=== PATIENT | male | born 1970 | race Two or more races ===

== ENCOUNTER 2019-08-03 07:25 | Emergency (ER) | payer MEDICAID ==
[~2019-08-03] VITALS: Ht 177.8 cm; Wt 95.0 kg
--- NOTE | 2019-08-03 07:25 | NUR ---
BIB C/O R ANKLE AND NOSE INJURY S/P GLF ON A 6FT LADDER, PT IS AAOX4, NOT IN RESPIRATORY DISTRESS, HOOKED TO MONITOR, KEPT RESTED AND COMFORTABLE, WILL CONTINUE TO MONITOR.
--- NOTE | 2019-08-03 07:25 | NUR ---
SEEN AND EXAMINED BY .
--- NOTE | 2019-08-03 07:26 | NUR ---
IV LINE ESTABLISHED, G18 R AC.
[2019-08-03] MEDS ORDERED: ONDANSETRON HCL/PF 4 MG/2 ML VIAL IVP ONE (07:30)
[2019-08-03] MEDS ORDERED: IV NS 0.9% 1,000 ML BAG IV ONE (07:30)
[2019-08-03] MEDS ORDERED: MORPHINE SULFATE INJ 2 MG/ML DISP.SYRIN IV ONE ×2 (07:30→09:00)
[2019-08-03] MEDS ORDERED: MORPHINE SULFATE INJ 4 MG/ML DISP.SYRIN ONE ×2 (07:34→08:35)
[2019-08-03] MEDS ORDERED: ONDANSETRON HCL/PF 4 MG/2 ML VIAL ONE (07:34)
--- NOTE | 2019-08-03 07:50 | NUR ---
PT IS WHEELED TO CT SCAN VIA [facility].
--- NOTE | 2019-08-03 08:35 | NUR ---
Paged Dr Serna for consult
[2019-08-03] MEDS ORDERED: HYDROMORPHONE 1 MG/1 ML DISP.SYRIN ONE ×2 (09:10→12:52)
--- NOTE | 2019-08-03 09:25 | NUR ---
[facility] AT BEDSIDE FOR XRAY.
[2019-08-03] MEDS ORDERED: HYDROMORPHONE 1 MG/1 ML DISP.SYRIN IV ONE ×2 (09:30→13:00)
--- NOTE | 2019-08-03 12:21 | NUR ---
RECIEVED A CALL FROM [facility] [phone]. ACCEPTED TO [facility] UNDER THE CARE OF Tiffanie PERAZA GOING TO [phone]. [phone] NUMBER FOR REPORT.
--- NOTE | 2019-08-03 12:41 | NUR ---
[facility] ETA 1330. JUNIOR AUTH# [id number].
--- NOTE | 2019-08-03 12:50 | NUR ---
REPORT GIVEN TO GALE QUINTANILLA OF [facility].
--- NOTE | 2019-08-03 13:43 | NUR ---
DR. POP PARRA ACCEPTED PATIENT AT [facility].
--- NOTE | 2019-08-03 13:48 | NUR ---
REPORT GIVEN TO EMT FOR PT TRANSFER TO [facility].
[2019-08-03 13:52] VITALS: BP 124/77
== END 2019-08-03 13:57 | disposition other institution (70) ==
LOC: ER 07:25 → EDBD 07:25 → ER 13:57
DX: S82.391A Other fracture of lower end of right tibia, initial encounter for closed fracture (principal); S02.2XXA Fracture of nasal bones, initial encounter for closed fracture; Z79.899 Other long term (current) drug therapy; W11.XXXA Fall on and from ladder, initial encounter; Y93.89 Activity, other specified; Y92.89 Other specified places as the place of occurrence of the external cause; Y99.8 Other external cause status
CPT/HCPCS: 29505; 70450; 70486; 73610 ×2; 73700; 96374; 96375; 96376; 99285; J1170 ×2; J2270 ×2; J2405; J7030

== ENCOUNTER 2020-04-22 04:52 | Emergency (ER) | payer MEDICAID ==
[~2020-04-22] VITALS: Ht 177.8 cm; Wt 88.5 kg
[2020-04-22 05:19] VITALS: BP 128/87
[2020-04-22] MEDS ORDERED: KETOROLAC TROMETHAMINE INJ 60 MG/2 ML VIAL IM ONE ×2 (05:52→06:00)
== END 2020-04-22 05:58 | disposition home or self-care (01) ==
LOC: ER 04:56
DX: H92.01 Otalgia, right ear (principal)
CPT/HCPCS: 96372; 99283; J1885

== ENCOUNTER 2022-09-07 11:57 | Emergency (ER) | payer MEDICAID ==
[~2022-09-07] VITALS: Ht 170.2 cm; Wt 90.7 kg
--- NOTE | 2022-09-07 13:15 | NUR ---
The patient is bib family for "Been having sorethroat/fever/chills/body aches/hard to swallow xcouple day. The patient rates pain 10/10. In room air and denies SOB. Respiration regular and unlabored. Denies N/V at this time. Will continue to monitor the patient.
[2022-09-07] MEDS ORDERED: IV NS 0.9% 1,000 ML BAG IV ONE ×2 (13:30→14:30)
[2022-09-07] MEDS ORDERED: KETOROLAC TROMETHAMINE INJ 30 MG/ML VIAL IV ONE (13:30)
[2022-09-07] MEDS ORDERED: KETOROLAC TROMETHAMINE INJ 30 MG/ML VIAL ONE (13:40)
[2022-09-07 13:59] LABS: BASOPHILS # (AUTO) 0.1 K/uL (0.0-0.2); BASOPHILS % (AUTO) 0.5 % (0.0-2.0); EOSINOPHILS % (AUTO) 0.8 % (0.0-6.0); HEMATOCRIT 46 % (39-51); HEMOGLOBIN 14.4 g/dL (13.5-17.5); LYMPHOCYTES # (AUTO) 1.6 K/uL (0.8-4.8); LYMPHOCYTES % (AUTO) 8.2 % (20.0-44.0); MEAN CORPUSCULAR HGB CONC 32 g/dl (31.0-36.0); MEAN CORPUSCULAR VOLUME 89 fL (80-96); MONOCYTES # (AUTO) 1.1 K/uL (0.1-1.30); NEUTROPHILS % (AUTO) 84.5 % (43.0-81.0); PLATELET COUNT (AUTO) 283 K/uL (150-450)
--- NOTE | 2022-09-07 13:59 | NUR ---
covid antigen and rapid group a strep swabs done and sent to the lab
[2022-09-07 14:10] LABS: CALCIUM, SERUM 8.6 mg/dL (8.5-10.1); CREATININE 1.1 mg/dL (0.6-1.3); POTASSIUM 3.9 mmol/L (3.5-5.1)
[2022-09-07 14:16] LABS: ALBUMIN 3.4 g/dL (3.4-5.0); BILIRUBIN,DIRECT 0.1 mg/dL (0.0-0.2); BILIRUBIN,TOTAL 0.4 mg/dL (0.2-1.0)
--- NOTE | 2022-09-07 14:21 | NUR ---
THE PATIENT IS TAKEN TO CT
--- NOTE | 2022-09-07 15:04 | NUR ---
urine collected and sent to the lab.
[2022-09-07] MEDS ORDERED: MORPHINE SULFATE INJ 4 MG/ML DISP.SYRIN ONE (15:05)
[2022-09-07] MEDS ORDERED: ONDANSETRON HCL/PF 4 MG/2 ML VIAL ONE (15:05)
[2022-09-07 15:16] LABS: BILIRUBIN,URINE NEGATIVE (NEGATIVE); COLOR,URINE YELLOW (YELLOW); LEUKOCYTE ESTERASE ,URINE NEGATIVE (NEGATIVE); NITRITE, URINE NEGATIVE (NEGATIVE); PH,URINE 5.5 (5.0-8.0); PROTEIN,URINE 1+ mg/dl (NEGATIVE); UGLUCOSE NEGATIVE (NEGATIVE); UROBILINOGEN,URINE 0.2 EU/dL (0.2)
[2022-09-07] MEDS ORDERED: MORPHINE SULFATE INJ 2 MG/ML DISP.SYRIN IV ONE (15:30)
[2022-09-07] MEDS ORDERED: ONDANSETRON HCL/PF 4 MG/2 ML VIAL IVP ONE (15:30)
[2022-09-07] MEDS ORDERED: HYDROCODONE/APAP 5/325MG TABLET PO ONE (17:00)
[2022-09-07] MEDS ORDERED: IBUP-1953 PO (17:02)
[2022-09-07] MEDS ORDERED: AMOX-430 PO (17:02)
[2022-09-07] MEDS ORDERED: HYDR-3972 PO (17:02)
[2022-09-07] MEDS ORDERED: HYDROCODONE/APAP 5/325MG TABLET ONE (17:08)
--- NOTE | 2022-09-07 17:12 | NUR ---
norco 2 tab po x 1
--- NOTE | 2022-09-07 17:13 | NUR ---
Patient discharged to home in stable condition. Written and verbal after care instructions given. Patient verbalizes understanding of instruction.
--- NOTE | 2022-09-07 17:13 | NUR ---
IV removed. Catheter intact and site benign. Pressure and 4x4 applied to site. No bleeding noted.
[2022-09-07 17:14] VITALS: BP 132/66
== END 2022-09-07 17:14 | disposition home or self-care (01) ==
LOC: ER 12:02
DX: J02.9 Acute pharyngitis, unspecified (principal); N45.1 Epididymitis; I88.0 Nonspecific mesenteric lymphadenitis; Z20.822 Contact with and (suspected) exposure to COVID-19
CPT/HCPCS: 99285; 72131; 96374; 71045; 96361; 96375; 87426; 74176; 85025; 80048; 87040 ×2; 83605; 80076; 81003; 36415; 87880; J2270; J1885; J2405; J7030; C9803; 86403-TC